=== PATIENT | female | born 1950 | race Caucasian/White ===

== ENCOUNTER 2016-12-01 13:46 | Emergency (ER) | payer BC, OTHER ==
[~2016-12-01] VITALS: Ht 167.6 cm; Wt 71.0 kg
[2016-12-01 13:59] VITALS: TEMP 36.8; Ht 167.6 cm; Wt 71.0 kg
[2016-12-01] MEDS ORDERED: IBUPROFEN 600 MG TAB PO STA (14:00)
[2016-12-01] MEDS ORDERED: METF-383 PO (14:15)
[2016-12-01] MEDS ORDERED: LEVO30TA PO (14:15)
[2016-12-01] MEDS ORDERED: LISI20TA3 PO (14:15)
--- NOTE | 2016-12-01 14:36 | EMERGENCY ROOM VISIT NOTE ---
History First contact with patient: 13:49 Chief Complaint: FALL Stated Complaint: FALL History of Present Illness The patient is a 66 year old female who presents to the Emergency Room via EMS for evaluation after a fall. The patient states that she was at work and tripped over a rug and fell onto tile. She states that she struck the left knee. She also has an abrasion to the right knee and slight pain in the left ankle. She denies hitting her head. She states her pain was initially a 10/ 10. She applied ice to the knee and states the pain is now a 4/10. The pain is worse with movement and weightbearing. She denies any previous injuries to me. She denies any numbness or weakness. Review of Systems A complete 10 point review of systems was reviewed with the patient with pertinent positives and negatives as per history of present illness. All else were negative. Social History Smoking Status: Never Smoker Current/Historical Medications Scheduled Levothyroxine Sodium (Levo-T), Unknown Dose PO DAILY Lisinopril (Prinivil), 20 MG PO DAILY Metformin Hcl (Glucophage), 850 MG PO BID Allergies Coded Allergies: No Known Allergies (Unverified , 12/01/16) Physical Exam Vital Signs Date Time Temp Pulse Resp B/P (MAP) Pulse Ox O2 Delivery O2 Flow Rate FiO2 12/01/16 15:39 57 18 110/59 98 Room Air 12/01/16 13:59 36.8 66 18 139/64 100 Room Air Physical Exam VITALS: Vitals are noted on the nurse's note and reviewed by myself. Vital signs stable. GENERAL: This is a 66-year-old female, in no acute distress, nondiaphoretic, well-developed well-nourished. SKIN: Small abrasions noted to the right anterior knee and right elbow. HEART: Regular rate and rhythm without murmurs gallops or rubs. LUNGS: Clear to auscultation bilaterally without wheezes, rales or rhonchi. MUSCULOSKELETAL: There is ecchymosis and a small hematoma over the left tibial tuberosity. There is tenderness to palpation of the anterior knee. No joint line tenderness. Full range of motion of the left knee. NEURO: Patient was alert and oriented to person place and time. Medical Decision & Procedures ER Provider Diagnostic Interpretation: LEFT KNEE 3 VIEWS CLINICAL HISTORY: Left knee pain following injury. COMPARISON: None FINDINGS: Alignment of left knee is anatomic. There is chondrocalcinosis within the menisci. There is no acute fracture. There is a small left knee joint effusion. There is mild spurring of the patella. IMPRESSION: 1. No acute fracture. 2. Small left knee joint effusion. 3. Chondrocalcinosis within the menisci. Medications Administered Medications (Trade) Dose Ordered Sig/Oleg Route Start Time Stop Time Status Last Admin Dose Admin Ibuprofen (Motrin Tab) 600 mg NOW STAT PO 12/01/16 14:00 12/01/16 14:01 DC 12/01/16 14:11 600 MG Medical Decision Differential diagnosis includes patellar fracture, tibial plateau fracture, contusion, sprain, meniscus injury, ligamentous injury, among others. The patient is a 66-year-old female who presents today complaining of left knee pain after a fall. She was given ibuprofen for pain. X-rays revealed a small effusion but no acute abnormalities. I did suggest using a walker or crutches, but the patient declined. She was placed in an Clint wrap and was able to walk without the assistance of crutches or walker. She has seen Dr. Wolf in the past and will follow-up with him as needed. Conservative measures were discussed. She verbalized understanding of my assessment and treatment plan and was discharged home in good condition. Impression Primary Impression: Contusion of left knee Additional Impression: Fall Departure Information Dispostion Home / Self-Care Condition GOOD Referrals Patric Haile III, M.D. (PCP) Sim Wolf M.D. Patient Instructions My [facility] Additional Instructions You have been treated in the Emergency Department for Knee Pain. For pain control, you can use the following [id number] medicines (if >12 yo): - Regular strength (325mg/tab) Tylenol (acetaminophen) 2 tabs every 4-6 hours as needed. Do not exceed 12 tablets in a 24 hour period. Avoid taking more than 4 grams (4000 mg) of Tylenol per day. This includes any other sources of acetaminophen you may take on a regular basis. - Regular strength (200 mg/tab) Advil (ibuprofen) 1-2 tabs every 4-6 hours as needed. Do not exceed a dose of 3200 mg per day. If this is a recent injury (<24 hrs), ice can be applied to the area of pain for the first 3 days to help decrease pain and inflammation. Ice massages can be performed by freezing water in a paper cup, peeling back the cup to expose the ice and then massaging over the affected area. You have been provided the number for an Orthopaedic Surgeon. If you have persistent or worsening pain within the next 2-3 days, call orthopedics to follow-up. Wear the Clint wrap and rest until the knee feels better. Return to the Emergency Department if your current symptoms worsen despite treatment course outlined above. Problem Qualifiers Primary Impression: Contusion of left knee Encounter type: initial encounter Qualified Codes: S80.02XA - Contusion of left knee, initial encounter Additional Impression: Fall Encounter type: initial encounter Qualified Codes: W19.XXXA - Unspecified fall, initial encounter
--- NOTE | 2016-12-01 14:59 | DIAGNOSTIC IMAGING REPORT ---
LEFT KNEE 3 VIEWS CLINICAL HISTORY: Left knee pain following injury. COMPARISON: None FINDINGS: Alignment of left knee is anatomic. There is chondrocalcinosis within the menisci. There is no acute fracture. There is a small left knee joint effusion. There is mild spurring of the patella. IMPRESSION: 1. No acute fracture. 2. Small left knee joint effusion. 3. Chondrocalcinosis within the menisci. Electronically signed by: Bucky Hernandez M.D. 12/01/2016 2:57 PM Dictated Date/Time: 12/01/2016 2:52 PM
[2016-12-01 15:39] VITALS: BP 110/59; PULSE 57; O2SAT 98
== END 2016-12-01 15:42 | disposition home or self-care (01) ==
LOC: EDBD 13:46 → C.EDC 13:47
DX: S80.02XA Contusion of left knee, initial encounter (principal); M25.562 Pain in left knee; M25.462 Effusion, left knee; M25.572 Pain in left ankle and joints of left foot; W18.09XA Striking against other object with subsequent fall, initial encounter; Y99.0 Civilian activity done for income or pay